=== PATIENT | female | born 1985 | race Caucasian/White ===

== ENCOUNTER 2023-09-06 23:42 | Emergency (ER) | payer OTHER, SELFPAY ==
[2023-09-06 23:48] VITALS: BP 118/82
--- NOTE | 2023-09-07 01:11 | ED.GENMED ---
History of Present Illness
<WANG Jarquin - Last Filed: 09/07/23 17:53>
General
Chief Complaint: Problems
Source: patient
Exam Limitations: none
Time Seen by Provider: 09/07/23 00:58
Travel History
Have you had any contact with someone who has COVID-19?: No
Do you have any symptoms of coronavirus? Fever > 100 degrees, chills, cough, shortness of breath, sore throat, loss of taste or smell, muscle aches, or headache?: No
History of Present Illness
History of Present Illness:
This is a 38 year old female that comes in with c/o vaginal bleeding. States that she did a home test on Saturday and this was positive. States that she started today with bleeding and cramping. States that she had a cold earlier in the
week and was seen at urgent care on Saturday. States that her bleeding is bright red with small clots. States that she had some diarrhea this morning and has a headache. States that she is also lightheaded. Denies any fever, chills, chest pain,
SOB, vomiting, urinary burning.
Past History
<WANG Jarquin - Last Filed: 09/07/23 17:53>
Past History
ED Past Medical History: Other (Preeclampsia in April)
ED Past Surgical History: Cholecystectomy and Other (Gastric bypass)
Social History
Tobacco: Former smoker
Alcohol: None
Personal: Single
Living: with family
Review of Systems
<WANG Jarquin - Last Filed: 09/07/23 17:53>
Review of Systems
All Other Systems: ROS reviewed and negative except as documented in HPI and ROS
Constitutional: Reports no symptoms; Denies fever or chills
EENT: Reports no symptoms
Respiratory: Reports no symptoms; Denies cough or trouble breathing
Cardiac: Reports no symptoms; Denies chest pain
ABD/GI: Reports abdominal pain (Cramping) and diarrhea; Denies nausea or vomiting
: Reports bleeding (Vaginal bleeding); Denies dysuria, frequency or flank pain
Musculoskeletal: Reports no symptoms
Skin: Reports no symptoms
Neurological: Reports headache and other (Lightheaded)
Psychiatric: Reports no symptoms
Phy Exam
<WANG Jarquin - Last Filed: 09/07/23 17:53>
General Physical Exam
General Presentation: well appearing and no apparent distress
General age: appears stated age
General Skin: warm and dry
General Habitus: normal
General Mental: alert
General Hydration: appears well hydrated
ENT Exam
ENT Exam: TM's normal, pharynx normal and neck supple
Eye Exam
Eye Exam: EOMI
Cardiovascular Exam
Cardiovascular Exam: regular rate/rhythm, no edema, no murmur and normal peripheral pulses
Pulmonary Exam
Pulmonary Exam: lungs clear, no respiratory distress, no rales, chest non tender, no crackles, no rhonchi, no wheezing and no cough
Gastrointestinal Exam
Gastrointestinal Exam: normal bowel sounds, non tender, soft, no organomegaly, no pulsatile mass and non distended
Genitourinary Exam Female
Vaginal Bleeding: minimal (on Pad)
Musculoskeletal Exam
Musculoskeletal Exam: full ROM and no edema
Skin Exam
Skin Exam: normal color, warm/dry, no rash and no petechia
Psychiatric Exam
Psychiatric Exam: normal mood/affect
Course
<WANG Jarquin - Last Filed: 09/07/23 17:53>
Orders/Labs/Results
Orders:
Orders
09/07/23 01:09
US W Transvaginal Urgent
Reason For Exam: VAGINAL BLEEDING, CRAMPING
09/07/23 01:10
0.9% Sodium Chloride 1000 ml [Nss] 1,000 ml IV BOLUS
09/07/23 01:22
Blood Group&Type Urgent
Gel Atypical Antibody Screen Urgent
BBK Wristband Number:
Beta HCG Quantitative Urgent
Is this a screen?: No
09/07/23 01:29
Acetaminophen [Tylenol] 1,000 mg .ROUTE .STK-MED ONE
09/07/23 01:31
Acetaminophen [Tylenol] 1,000 mg PO NOW STA
09/07/23 03:48
Rhogam [* Blood Bank Products] Urgent
Blood Bank Products: Rhogam - Mini Dose
Quantity: 1
Transfuse Today: Yes
Reason: Bleeding
Rho (D) Immune Globulin [MICRhoGRAM ULTRA FILTERED PLUS] 50 mcg IM ONCE ONE
09/07/23 04:00
Rho (D) Immune Globulin [MICRhoGRAM ULTRA FILTERED PLUS] 50 mcg IM ONCE ONE
09/07/23 04:56
Rho(D) Immune Globulin [Hyperrho S-D] 1,500 unit IM ONCE ONE
O negative, HCG 61.88
Vital Signs
Initial and Last Documented VS:
Initial Vital Signs
Temp Pulse Resp BP Pulse Ox
97.8 F 80 18 118/82 100
09/06/23 23:48 09/06/23 23:48 09/06/23 23:48 09/06/23 23:48 09/06/23 23:48
Last Documented Vital Signs
Temp Pulse Resp BP Pulse Ox
97.4 F 76 16 116/70 98
09/07/23 05:05 09/07/23 05:05 09/07/23 05:05 09/07/23 05:05 09/07/23 05:05
Information
Weeks gestation: N/A
Location: N/A
<Shelly De La Paz DO - Last Filed: 09/07/23 04:57>
Orders/Labs/Results
Orders:
Orders
09/07/23 01:09
US W Transvaginal Urgent
Reason For Exam: VAGINAL BLEEDING, CRAMPING
09/07/23 01:10
0.9% Sodium Chloride 1000 ml [Nss] 1,000 ml IV BOLUS
09/07/23 01:22
Blood Group&Type Urgent
Gel Atypical Antibody Screen Urgent
BBK Wristband Number:
Beta HCG Quantitative Urgent
Is this a screen?: No
09/07/23 01:29
Acetaminophen [Tylenol] 1,000 mg .ROUTE .STK-MED ONE
09/07/23 01:31
Acetaminophen [Tylenol] 1,000 mg PO NOW STA
09/07/23 03:48
Rhogam [* Blood Bank Products] Urgent
Blood Bank Products: Rhogam - Mini Dose
Quantity: 1
Transfuse Today: Yes
Reason: Bleeding
Rho (D) Immune Globulin [MICRhoGRAM ULTRA FILTERED PLUS] 50 mcg IM ONCE ONE
09/07/23 04:00
Rho (D) Immune Globulin [MICRhoGRAM ULTRA FILTERED PLUS] 50 mcg IM ONCE ONE
09/07/23 04:56
Rho(D) Immune Globulin [Hyperrho S-D] 1,500 unit IM ONCE ONE
Vital Signs
Initial and Last Documented VS:
Initial Vital Signs
Temp Pulse Resp BP Pulse Ox
97.8 F 80 18 118/82 100
09/06/23 23:48 09/06/23 23:48 09/06/23 23:48 09/06/23 23:48 09/06/23 23:48
Last Documented Vital Signs
Temp Pulse Resp BP Pulse Ox
97.4 F 76 16 116/70 98
09/07/23 05:05 09/07/23 05:05 09/07/23 05:05 09/07/23 05:05 09/07/23 05:05
<WANG Jarquin - Last Filed: 09/07/23 17:53>
MDM/Problems Addressed
Differential Diagnosis Includes:
Miscarriage, Bleeding in early
MDM/Problems Addressed:
This is a 38 year old female that comes in with c/o vaginal bleeding. States that she did a test on Saturday and it was positive. States that she started with bleeding today and abd cramping.
Will get labs and Ultrasound.
Chronic conditions affecting care:
NA
Acute Exacerbation and/or Progression of Chronic Illness:
NA
<WANG Jarquin - Last Filed: 09/07/23 17:53>
*Radiology
Radiology exam reviewed: radiology read reviewed (US- No clear evidence for an intrauterine gestational sac. recommend correlation with beta HCG levels and follow-up ultrasound as clinically indicated. )
*Pulse Oximetry
Patient hypoxic: no
*EKG
Interpreted by ED Provider?: NA
Rate: EKG- N/A
*Program Support Assistant Interpretation
Rate: Program Support Assistant- N/A
*Critical Care Note
Total Time (30-74mins, 75-104mins- exclusive of procedures): Not Applicable
<Shelly De La Paz DO - Last Filed: 09/07/23 04:57>
*Radiology
Radiology exam reviewed: radiology read reviewed
ED Attending Note
<WANG Jarquin - Last Filed: 09/07/23 17:53>
-
Portions of this chart may have been created with voice recognition software.� Occasional wrong word or��sound alike� substitutions may have occurred due to the inherent limitations of voice recognition software.
<Shelly De La Paz DO - Last Filed: 09/07/23 04:57>
ED Attending Note
Patient seen and examined by attending physician: Yes
I performed the substantive portion of visit, reviewed & personally made and approve the management plan that is documented in note by myself or KARL.: Yes
I performed a history and physical exam of patient and discussed management with resident, I reviewed resident's note and agree with documented findings and plan of care.: Yes
ED Attending Note:
Patient presents with mild vaginal bleeding, mild cramping with positive home test yesterday.
Due to full-term, uneventful delivery in April and thus far her menstrual periods have not resumed .
She follows with PRINTING SERVICES COORDINATOR in [place].
Currently comfortable, pain-free and remains hemodynamically stable.
Abdomen is soft without appreciable tenderness.
hCG is quite low at 61.88
O- blood type thus a dose of RhoGAM has been ordered. Her last dose of RhoGAM was in April, greater than 12 weeks has surpassed thus RhoGAM is definitely indicated.
Ultrasound shows very small fluid collection with a mean diameter of 2 mm within the endometrial stripe but no definite yolk sac. There is no evidence of ectopic /no separate adnexal mass is identified. There is a small corpus luteum cyst
left ovary. No free fluid.
At this point is unclear if this is not early viable , early/spontaneous miscarriage. There is no definitive evidence of ectopic .
Patient will require prompt follow-up with her licensed veterinary technician in [place] and will plan to repeat hCG in 2 days time, on Saturday, September 08 with plan for follow-up with PR[facility]ING SERVICES COORDINATOR with results.
Discharge Plan
Departure
Patient Disposition: Home (Routine Discharge)
Date of Disposition: 09/07/23
Time of Disposition: 04:47
Patient with high blood pressure during this ER visit?: No
Condition: Good
Discharge Problem:
Threatened miscarriage in early
Instructions: Threatened Miscarriage (DC), Rho(D) Immune Globulin
Prescriptions:
No Action
valacyclovir [Valtrex] 1 gram Tablet
1,000 mg PO DAILY
bupropion HCl [Wellbutrin XL] 300 mg Tablet Extended Release 24 Hr
300 mg PO DAILY
levocetirizine [Xyzal] 5 mg Tablet
5 mg PO DAILY
Referrals:
UNKNOWN - PT DOES,NOT KNOW [Family Provider] -
Activity Restrictions/Additional Instructions:
Will plan for repeat quantitative hCG on Saturday, September 08. Follow-up with your licensed veterinary technician with hCG result and recheck.
Interventions
Interventions:
*Risk Screen - Suicide Last Done: 09/06/23 23:48
*General Assessment Last Done: 09/07/23 01:23
*Neglect/Abuse Screening Last Done: 09/07/23 01:23
ED- Fall Risk Assessment Last Done: 09/07/23 05:07
*ED COVID-19 Vaccine History Last Done: 09/07/23 05:07
*Nursing Disposition Last Done: 09/07/23 05:07
ED-Female Genitourinary Assessment Last Done: 09/07/23 01:36
Discharge Date and Time
Discharge Date/Time: 09/07/23 05:07
Print Language: MALAY
[2023-09-07] MEDS: NSS 1000 IV (01:22)
[2023-09-07 01:23] VITALS: BMI 25.7
[2023-09-07] MEDS: TYLENOL 1000 MG PO (01:32)
[2023-09-07 02:00] VITALS: BP 124/68
[2023-09-07 03:27] LABS: Beta HCG Quantitative 61.88 mIU/ml
[2023-09-07] MEDS: HYPERRHO S-D 1500 UNIT IM (04:57)
[2023-09-07 05:05] VITALS: BP 116/70
== END 2023-09-07 05:07 | disposition home or self-care (01) ==
LOC: EMR 23:42
PROVIDERS: Clinical Nurse Specialist Family Health; EMERGENCY PHYSICIAN Emergency Medicine
DX: O20.0 Threatened abortion (principal); Z3A.00 Weeks of gestation of pregnancy not specified; Z87.891 Personal history of nicotine dependence
CPT/HCPCS: 99285; 96360; 96372; 76801; 76817; 84702; 86850; 86900; 86901; J2790